=== PATIENT | male | born 1980 | race Two or more races ===

== ENCOUNTER 2021-07-28 17:43 | Emergency (ER) | payer MEDICAID ==
[~2021-07-28] VITALS: Ht 177.8 cm; Wt 90.7 kg
--- NOTE | 2021-07-28 17:53 | NUR ---
BIBS C/O FEVER X 2 DAYS, PT STATED HE TOOK TYLENOL AT 1700.
--- NOTE | 2021-07-28 17:58 | NUR ---
SEEN AND EXAMINED BY
--- NOTE | 2021-07-28 18:09 | NUR ---
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
--- NOTE | 2021-07-28 18:20 | NUR ---
COVID TEST COLLECTED AND SENT
[2021-07-28] MEDS ORDERED: AZIT250T PO (19:16)
[2021-07-28] MEDS ORDERED: GUAI-671 PO (19:16)
--- NOTE | 2021-07-28 19:26 | NUR ---
Patient discharged to home in stable condition. Written and verbal after care instructions given. Patient verbalizes understanding of instruction. pT ambulatory with a steady gait
[2021-07-28 19:28] VITALS: BP 125/67
== END 2021-07-28 19:29 | disposition home or self-care (01) ==
LOC: ER 17:47
DX: J20.9 Acute bronchitis, unspecified (principal); Z20.822 Contact with and (suspected) exposure to COVID-19
CPT/HCPCS: 71045; 87426; 99284; C9803